=== PATIENT | female | born 1985 | race Caucasian/White ===

== ENCOUNTER 2016-08-31 18:31 | Emergency (ER) | payer OTHER ==
[~2016-08-31] VITALS: Ht 149.9 cm; Wt 78.6 kg
[~2016-08-31 18:31] MED LIST: MULT-506 PO; OMEP20CA9 PO
[2016-08-31 18:36] VITALS: TEMP 36.6; Ht 149.9 cm; Wt 78.6 kg
[2016-08-31] MEDS ORDERED: MoRPHine SULFATE 10 MG/ML CARP/VIAL IV STA (18:51)
[2016-08-31] MEDS ORDERED: SODIUM CHLORIDE 0.9% 1000ML 1,000 ML IV STA (18:51)
[2016-08-31] MEDS ORDERED: ONDANSETRON INJ 2 MG/ML 2 ML VIAL IV STA (18:51)
[2016-08-31] MEDS ORDERED: ONDA4TAB46 PO (18:54)
[2016-08-31 19:09] LABS: BASO % 0.3 %; BASO ABS # 0.02 K/uL (0-0.2); COMPLETE YES; EOS % 1.1 %; HEMATOCRIT 40.9 % (37-47); IG% 0.2 %; LYMPH % 31.1 %; LYMPH ABS # 1.95 K/uL (1.2-3.4); MEAN CELL VOLUME 84.5 fL (80-100); MEAN CORPUSCULAR HEMOGLOBIN 29.5 pg (25-34); MEAN PLATELET VOLUME 9.6 fL (7.4-10.4); MONO % 5.1 %; NEUT % 62.2 %; PLATELET COUNT 234 K/uL (130-400); RED BLOOD COUNT 4.84 M/uL (4.2-5.4); WHITE BLOOD COUNT 6.28 K/uL (4.8-10.8)
[2016-08-31 19:17] LABS: URINE APPEARANCE CLEAR (CLEAR); URINE BILIRUBIN NEG (NEG); URINE COLOR YELLOW; URINE NITRITE NEG (NEG); URINE SPECIFIC GRAVITY 1.015 (1.000-1.030); UROBILINOGEN NEG (NEG)
[2016-08-31 19:26] LABS: ALT/SGPT 28 U/L (12-78); BLOOD UREA NITROGEN 13 mg/dl (7-18); CALCIUM 9.1 mg/dl (8.5-10.1); CARBON DIOXIDE 28 mmol/L (21-32); CHLORIDE 107 mmol/L (98-107); CREATININE 0.81 mg/dl (0.60-1.20); GLUCOSE 99 mg/dl (70-99); POTASSIUM 3.9 mmol/L (3.5-5.1); SODIUM 142 mmol/L (136-145)
[2016-08-31 19:27] LABS: MANUAL MICROSCOPIC REQUIRED? NO; REVIEW REQ? NO
[2016-08-31 19:29] LABS: ALKALINE PHOSPHATASE 58 U/L (45-117); AST/SGOT 14 U/L (15-37)
[2016-08-31] MEDS ORDERED: KETOROLAC TROMETHAMINE 30 MG/ML VIAL IV STA (19:59)
--- NOTE | 2016-08-31 20:04 | DIAGNOSTIC IMAGING REPORT ---
CT SCAN OF THE ABDOMEN AND PELVIS WITHOUT CONTRAST CLINICAL HISTORY: Right flank pain COMPARISON STUDY: No previous studies for comparison. TECHNIQUE: CT scan of the abdomen and pelvis was performed from the lung bases to the proximal femurs. Images are reviewed in the axial, sagittal, and coronal planes. IV contrast was not administered for this examination. A dose lowering technique was utilized adhering to the principles of ALARA. CT DOSE: 1243.73 mGy.cm FINDINGS: Lower chest: The heart is normal in size and configuration, without pericardial effusion. The lung bases and pleural spaces are clear. Liver: The unenhanced liver is normal in size, contour, and attenuation. There is no intrahepatic biliary ductal dilatation. Gallbladder: Unremarkable. Spleen: Normal in size and attenuation. Pancreas: Unremarkable. Adrenal glands: Unremarkable. Kidneys: There is a 2 mm nonobstructing left renal calculus. There is a 3 mm nonobstructing right renal calculus. There is no hydronephrosis. No ureteral or bladder calculi are visualized. Bowel: There are no transition zones indicate bowel obstruction. There is no acute diverticulitis. The appendix is normal. Peritoneum: There is no intraperitoneal free air or abdominal ascites. Vasculature: The abdominal aorta is normal in course and caliber. Adenopathy: None. Pelvic viscera: There are bilateral ovarian follicles Skeletal structures: No destructive osseous lesions are seen. IMPRESSION: 1. Bilateral nephrolithiasis. No ureteral or bladder calculi identified 2. No evidence of bowel obstruction. No evidence of free air 3. Normal appendix 4. No acute inflammatory changes Electronically signed by: Brown Watson M.D. 08/31/2016 8:03 PM Dictated Date/Time: 08/31/2016 7:59 PM
[2016-08-31 20:40] VITALS: BP 105/68; PULSE 68; O2SAT 99
--- NOTE | 2016-09-01 00:11 | EMERGENCY ROOM VISIT NOTE ---
ED Visit Note First contact with patient: 18:41 Chief Complaint: Right flank pain. History of Present Illness: Ms. Bryan is a 31 year-old white female who ambulates into the ED complaining of right flank pain. Historically patient reports she has a history of passing large kidney stones requiring surgical removal. Patient reports acute onset of severe right flank pain that started approximately 2 hours ago. Since that time the pain has been constant but has slightly waxed and waned in intensity. She currently rates her discomfort 8/ 10. Her pain is radiating around the abdomen and into the right lower quadrant. She has not identified any aggravating or alleviating factors related to the pain. She has not had a medication for pain prior to arrival at the hospital. Associated with her pain she reports she has been nauseated and has had multiple episodes of vomiting. Patient denies fevers, chills, sweats, skin eruptions, skin color changes, upper respiratory tract symptoms, shortness of breath, chest pain, diarrhea, constipation, rectal bleeding, black/tarry stools, urinary symptoms, hematuria, vaginal bleeding, vaginal discharge. Review of Systems: As noted above in history of present illness. All body systems were reviewed and found to be negative as noted above. Past Medical History: As previously noted, bronchitis, pneumonia and GERD. Current Medications: Prilosec, Zofran. Allergies to Medications: Patient denies. Social History: Patient is currently employed; she feels safe in her home environment; she denies tobacco use. Physical Examination: Vital Signs: Date Time Temp Pulse Resp B/P (MAP) Pulse Ox O2 Delivery O2 Flow Rate FiO2 08/31/16 20:40 68 18 105/68 99 08/31/16 19:56 78 16 119/81 98 Room Air 08/31/16 19:26 81 08/31/16 18:36 36.6 92 18 120/86 98 Room Air GENERAL: 31-year-old female in moderate distress due to pain, nontoxic-appearing , afebrile and hemodynamically stable. NEUROLOGICAL: Awake, alert and oriented to person, place and time. Answering questions appropriately and following commands. Normal gait. Good hand eye coordination. SKIN: Warm, dry and pink. No soft tissue eruptions or trauma noted. HEENT: Atraumatic and normocephalic. PERRLa. Sclera white and conjunctiva pink. Oral cavity moist and pink. Pharynx is nonerythematous or edematous. Speech normal. No lymphadenopathy. Trachea midline. No jugular venous distention. BACK: No tenderness over the bony cervical, thoracic and lumbar spine. No tenderness or spasm throughout the paraspinous musculature. Mild right-sided CVA tenderness. THORAX: Lungs sounds are clear to auscultation and equal bilaterally with symmetrical chest wall. ABDOMEN: Flat and soft with mild tenderness in the right lower quadrant 2-3 cm superior to McBurney's point. Positive bowel sounds in all quadrants. No guarding, rigidity or organomegaly. EXTREMITIES: Moves all extremities well on command and with purpose. All distal neurovascular statuses are intact and equal bilaterally. ED Course: Patient is assessed as noted above. Laboratory Testing: Test 08/31/16 18:55 Range/Units White Blood Count 6.28 4.8-10.8 K/uL Red Blood Count 4.84 4.2-5.4 M/uL Hemoglobin 14.3 12.0-16.0 g/dL Hematocrit 40.9 37-47 % Mean Corpuscular Volume 84.5 80-100 fL Mean Corpuscular Hemoglobin 29.5 25-34 pg Mean Corpuscular Hemoglobin Concent 35.0 32-36 g/dl Platelet Count 234 130-400 K/uL Mean Platelet Volume 9.6 7.4-10.4 fL Neutrophils (%) (Auto) 62.2 % Lymphocytes (%) (Auto) 31.1 % Monocytes (%) (Auto) 5.1 % Eosinophils (%) (Auto) 1.1 % Basophils (%) (Auto) 0.3 % Neutrophils # (Auto) 3.91 1.4-6.5 K/uL Lymphocytes # (Auto) 1.95 1.2-3.4 K/uL Monocytes # (Auto) 0.32 0.11-0.59 K/uL Eosinophils # (Auto) 0.07 0-0.5 K/uL Basophils # (Auto) 0.02 0-0.2 K/uL RDW Standard Deviation 37.4 36.4-46.3 fL RDW Coefficient of Variation 12.2 11.5-14.5 % Immature Granulocyte % (Auto) 0.2 % Immature Granulocyte # (Auto) 0.01 0.00-0.02 K/uL Urine Color YELLOW Urine Appearance CLEAR CLEAR Urine pH 8.0 4.5-7.5 Urine Specific [place] 1.015 1.000-1.030 Urine Protein NEG NEG Urine Glucose (UA) NEG NEG Urine Ketones NEG NEG Urine Occult Blood NEG NEG Urine Nitrite NEG NEG Urine Bilirubin NEG NEG Urine Urobilinogen NEG NEG Urine Leukocyte Esterase NEG NEG Urine Test NEG NEG Sodium Level 142 136-145 mmol/L Potassium Level 3.9 3.5-5.1 mmol/L Chloride Level 107 98-107 mmol/L Carbon Dioxide Level 28 21-32 mmol/L Anion Gap 7.0 3-11 mmol/L Blood Urea Nitrogen 13 7-18 mg/dl Creatinine 0.81 0.60-1.20 mg/dl Est Creatinine Clear Calc Drug Dose 89.5 ml/min Estimated GFR () 110.6 Estimated GFR (Non- 95.4 BUN/Creatinine Ratio 16.0 10-20 Random Glucose 99 70-99 mg/dl Calcium Level 9.1 8.5-10.1 mg/dl Total Bilirubin 0.3 0.2-1 mg/dl Direct Bilirubin < 0.1 0-0.2 mg/dl Aspartate Amino Transf (AST/SGOT) 14 15-37 U/L Alanine Aminotransferase (ALT/SGPT) 28 12-78 U/L Alkaline Phosphatase 58 45-117 U/L Total Protein 7.2 6.4-8.2 gm/dl Albumin 3.6 3.4-5.0 gm/dl Lipase 315 73-393 U/L Noncontrast Abdominal/Pelvic CT: Was reviewed by myself and read by the radiologist showing bilateral nephrolithiasis with no ureter or bladder calculi identified, no evidence of bowel obstruction or free air, normal-appearing appendix and no acute inflammatory changes. Patient was hydrated with normal saline and received 3 mg of morphine IV and 30 mg of Toradol IV for pain and 4 mg of Zofran IV for nausea/vomiting. Patient was reassessed multiple times during her stay in the emergency department. After I reviewed the patient's CT results with her she did report immediately prior to going over to the radiological department for her CT she did urinate and heard a clicking sensation in the toilet; when she attempted to identify the cause of the toilet flushed itself and she was not able to identify the cause. Patient's case was reviewed with Dr. Rendon; we agreed on diagnostic approach, treatment, disposition and plan. Patient was educated about today's findings and instructed on his/her treatment plan; she verbalizes understanding and agreement with this plan. Clinical Impression: Right flank pain. Probable recently passed nephrolithiasis. Decision-Making: my differential diagnosis I considered nephrolithiasis, pyelonephritis, musculoskeletal disorder, pancreatitis, hepatitis, acute appendicitis, ectopic and other causes. Disposition: Patient discharged home in stable condition accompanied by female friends; prior to departure she was reassessed and subjectively reported she was still experiencing pain rated a 7/10. Plan: Patient was encouraged to alternate ibuprofen and acetaminophen as needed for pain. Patient was encouraged to stay well hydrated. Patient was encouraged to follow-up with her primary care provider if no better in 2-3 days. Patient was encouraged return ED for worsening pain, fevers, bloody urine, vaginal bleeding/discharge, worsening nausea/vomiting or any new/concerning symptoms.
== END 2016-08-31 20:41 | disposition home or self-care (01) ==
LOC: C.EDB 18:32 → C.EDC 20:41
DX: R10.9 Unspecified abdominal pain (principal); K21.9 Gastro-esophageal reflux disease without esophagitis

== ENCOUNTER 2017-10-06 05:14 | Emergency (ER) | payer OTHER ==
[~2017-10-06] VITALS: Ht 149.9 cm; Wt 74.8 kg
[~2017-10-06 05:14] MED LIST changes: +ONDA4TAB46 PO
[2017-10-06 05:29] VITALS: Ht 149.9 cm; Wt 74.8 kg
[2017-10-06 05:51] LABS: BASO % 0.1 %; BASO ABS # 0.01 K/uL (0-0.2); EOS % 0.6 %; EOS ABS # 0.05 K/uL (0-0.5); HEMATOCRIT 39.2 % (37-47); HEMOGLOBIN 13.6 g/dL (12.0-16.0); IG# 0.01 K/uL (0.00-0.02); LYMPH % 28.1 %; LYMPH ABS # 2.18 K/uL (1.2-3.4); MEAN CELL VOLUME 83.9 fL (80-100); MEAN CORPUSCULAR HEMOGLOBIN 29.1 pg (25-34); MEAN CORPUSCULAR HGB CONC 34.7 g/dl (32-36); MONO % 5.7 %; MONO ABS # 0.44 K/uL (0.11-0.59); NEUT % 65.4 %; NEUT ABS # 5.08 K/uL (1.4-6.5); PLATELET COUNT 229 K/uL (130-400); RED CELL DISTRIBUTION WIDTH CV 12.3 % (11.5-14.5); RED CELL DISTRIBUTION WIDTH SD 37.2 fL (36.4-46.3); WHITE BLOOD COUNT 7.77 K/uL (4.8-10.8)
[2017-10-06 06:09] LABS: ALBUMIN 3.6 gm/dl (3.4-5.0); CALCIUM 8.7 mg/dl (8.5-10.1); CREATININE 0.72 mg/dl (0.60-1.20); POTASSIUM 3.5 mmol/L (3.5-5.1); TOTAL PROTEIN 7.4 gm/dl (6.4-8.2)
--- NOTE | 2017-10-06 07:16 | DIAGNOSTIC IMAGING REPORT ---
KUB CLINICAL HISTORY: L flank pain pain COMPARISON STUDY: No previous studies for comparison. FINDINGS: The soft tissues, psoas shadows, renal outlines and intestinal gas pattern appear normal. There is no evidence for bowel obstruction. No abnormal abdominal calcifications are seen. IMPRESSION: Normal study. The above report was generated using voice recognition software. It may contain grammatical, syntax or spelling errors. Electronically signed by: Felix Felder M.D. 10/06/2017 7:14 AM Dictated Date/Time: 10/06/2017 7:14 AM
[2017-10-06] MEDS ORDERED: ONDA4TAB10 SL (07:23)
--- NOTE | 2017-10-06 07:24 | EMERGENCY ROOM VISIT NOTE ---
History First contact with patient: 05:27 Chief Complaint: KIDNEY STONE Stated Complaint: KIDNEY STONE History of Present Illness The patient is a 32 year old female who presents to the Emergency Room via private vehicle with complaints of "kidney stone". The patient states that she has a history of kidney stones. She notes that she has had about 15 in the past. She states that around 330 or 4 AM she began with left-sided flank pain that radiated from the left flank around to the left groin region. She states it was sharp in nature. She also has had fever over the past few days. She took a Zofran earlier with some relief. She never was able to pass her stones and has had to have stents in the past. Pain is a 4/10. Review of Systems A complete 10-point Review of Systems was discussed with the patient, with pertinent positives and negatives listed in the History of Present Illness. All remaining Review of Systems questions can be considered negative unless otherwise specified. Past Medical/Surgical History Medical Problems: (1) Bronchitis (2) Kidney stone (3) Pneumonia (4) Stomach problems Family History Diabetes mellitus FH: cancer FH: gallbladder disease FH: hypertension Heart disease Kidney stones Social History Smoking Status: Former Smoker Alcohol Use: occasionally Housing Status: lives with family Occupation Status: employed Current/Historical Medications Scheduled Ondasetron Odt (Zofran Odt), 4 MG SL Q6H Physical Exam Vital Signs Date Time Temp Pulse Resp B/P (MAP) Pulse Ox O2 Delivery O2 Flow Rate FiO2 10/06/17 07:13 36.6 96 16 113/87 96 Room Air 10/06/17 05:29 37.1 85 18 108/87 98 Room Air Physical Exam VITAL SIGNS - Vital signs and nursing notes were reviewed. Stable. Afebrile. GENERAL - 32-year-old female appearing her stated age who is in no acute distress. Communicates well with provider and answers questions appropriately. SKIN - Without rashes. HEAD - NC/AT. EYES - PERRL with EOMI bilaterally. Sclera anicteric. EARS - No deformities of external structures noted on gross examination bilaterally. NOSE - Midline and without cyanosis. No epistaxis or purulent drainage noted. MOUTH/OROPHARYNX - Without perioral cyanosis. . LUNGS - Chest wall symmetric without accessory muscle use, intercostals retractions, or central cyanosis. Normal vesicular breath sounds CTA B/L. No wheezes, rales, or rhonchi appreciated. CARDIAC - RRR with S1/S2. No murmur, rubs, or gallops appreciated. ABDOMEN - Abdominal contour normal without pulsations or visible masses. BS normoactive all four quadrants. No tenderness, palpable masses, hepatosplenomegaly, or ascites noted. Minimal left flank tenderness. NEUROLOGIC - Cranial nerves II through XII grossly intact. Sensory intact to light touch throughout. PSYCH - A&O, and cooperates fully with examiner. Pt is very pleasant and interacts well with examiner. Medical Decision & Procedures ER Provider Diagnostic Interpretation: KUB CLINICAL HISTORY: L flank pain pain COMPARISON STUDY: No previous studies for comparison. FINDINGS: The soft tissues, psoas shadows, renal outlines and intestinal gas pattern appear normal. There is no evidence for bowel obstruction. No abnormal abdominal calcifications are seen. IMPRESSION: Normal study. The above report was generated using voice recognition software. It may contain grammatical, syntax or spelling errors. Electronically signed by: Felix Felder M.D. 10/06/2017 7:14 AM Dictated Date/Time: 10/06/2017 7:14 AM RENAL ULTRASOUND HISTORY: L flank pain COMPARISON: None. FINDINGS: Right kidney: 9.8 cm. No hydronephrosis. Normal corticomedullary differentiation and cortical thickness. Left kidney: 9.9 cm. Mild fullness within the left renal collecting system without britney hydronephrosis. Normal corticomedullary differentiation and cortical thickness. Bladder: No bladder wall thickening. The bilateral ureteral jets were identified. IMPRESSION: 1. Mild fullness within the left renal collecting system without britney hydronephrosis. 2. Normal right kidney. Electronically signed by: Joshua Trimble M.D. 10/06/2017 7:26 AM Dictated Date/Time: 10/06/2017 7:24 AM Laboratory Results 10/06/17 05:40 Red Blood Count 4.67, Mean Corpuscular Volume 83.9, Mean Corpuscular Hemoglobin 29.1, Mean Corpuscular Hemoglobin Concent 34.7, Mean Platelet Volume 10.0, Neutrophils (%) (Auto) 65.4, Lymphocytes (%) (Auto) 28.1, Monocytes (%) (Auto) 5.7, Eosinophils (%) (Auto) 0.6, Basophils (%) (Auto) 0.1, Neutrophils # (Auto) 5.08, Lymphocytes # (Auto) 2.18, Monocytes # (Auto) 0.44, Eosinophils # (Auto) 0.05, Basophils # (Auto) 0.01 10/06/17 05:40 Test 10/06/17 05:40 White Blood Count 7.77 K/uL (4.8-10.8) Red Blood Count 4.67 M/uL (4.2-5.4) Hemoglobin 13.6 g/dL (12.0-16.0) Hematocrit 39.2 % (37-47) Mean Corpuscular Volume 83.9 fL (80-100) Mean Corpuscular Hemoglobin 29.1 pg (25-34) Mean Corpuscular Hemoglobin Concent 34.7 g/dl (32-36) Platelet Count 229 K/uL (130-400) Mean Platelet Volume 10.0 fL (7.4-10.4) Neutrophils (%) (Auto) 65.4 % Lymphocytes (%) (Auto) 28.1 % Monocytes (%) (Auto) 5.7 % Eosinophils (%) (Auto) 0.6 % Basophils (%) (Auto) 0.1 % Neutrophils # (Auto) 5.08 K/uL (1.4-6.5) Lymphocytes # (Auto) 2.18 K/uL (1.2-3.4) Monocytes # (Auto) 0.44 K/uL (0.11-0.59) Eosinophils # (Auto) 0.05 K/uL (0-0.5) Basophils # (Auto) 0.01 K/uL (0-0.2) RDW Standard Deviation 37.2 fL (36.4-46.3) RDW Coefficient of Variation 12.3 % (11.5-14.5) Immature Granulocyte % (Auto) 0.1 % Immature Granulocyte # (Auto) 0.01 K/uL (0.00-0.02) Urine Color YELLOW Urine Appearance CLEAR (CLEAR) Urine pH 7.0 (4.5-7.5) Urine Specific [place] 1.008 (1.000-1.030) Urine Protein NEG (NEG) Urine Glucose (UA) NEG (NEG) Urine Ketones NEG (NEG) Urine Occult Blood 2+ (NEG) Urine Nitrite NEG (NEG) Urine Bilirubin NEG (NEG) Urine Urobilinogen NEG (NEG) Urine Leukocyte Esterase NEG (NEG) Urine WBC (Auto) 1-5 /hpf (0-5) Urine RBC (Auto) >30 /hpf (0-4) Urine Hyaline Casts (Auto) 1-5 /lpf (0-5) Urine Epithelial Cells (Auto) >30 /lpf (0-5) Urine Bacteria (Auto) NEG (NEG) Anion Gap 9.0 mmol/L (3-11) Est Creatinine Clear Calc Drug Dose 97.1 ml/min Estimated GFR () 126.6 Estimated GFR (Non- 109.3 BUN/Creatinine Ratio 15.2 (10-20) Calcium Level 8.7 mg/dl (8.5-10.1) Total Bilirubin 0.4 mg/dl (0.2-1) Aspartate Amino Transf (AST/SGOT) 16 U/L (15-37) Alanine Aminotransferase (ALT/SGPT) 27 U/L (12-78) Alkaline Phosphatase 64 U/L (45-117) Total Protein 7.4 gm/dl (6.4-8.2) Albumin 3.6 gm/dl (3.4-5.0) Globulin 3.8 gm/dl (2.5-4.0) Albumin/Globulin Ratio 1.0 (0.9-2) Medical Decision Patient was seen and evaluated as above in room B6. Review was performed of nursing notes and vital signs. After obtaining a thorough history and physical examination the above work up was performed. She presents to us today with left -sided flank pain. Positive CVA tenderness on the left. CBC and metabolic panel revealed no leukocytosis, anemia or kidney failure. Urine reveals blood. I suspect she could have either passed a stone or has a small stone that she is passing. She declined pain medication. She will be given Zofran for nausea. She is to follow with a family doctor or return with worsening. KUB within normal limits. Ultrasound reveals mild fullness. I discussed with her different differentials for pain in that region and at this time believe that refraining from a CT scan is warranted given the amount of radiation with risk felt to outweigh benefit. She is to return with worsening. The patient was educated upon management, educated upon todays findings/results, educated upon symptoms in which to return, had questions answered prior to discharge, and was discharged home in good condition. Her examination is not consistent with ovarian torsion. Case was discussed with the attending physician. In the evaluation and treatment of this patient the following differential diagnoses were entertained: Renal calculi, pyelonephritis, diverticulitis, ovarian cyst, appendicitis, among others. Impression Primary Impression: Left flank pain Departure Information Dispostion Home / Self-Care Condition GOOD Prescriptions Ondasetron Odt (ZOFRAN ODT) 4 Mg Tab 4 MG SL Q6H for Nausea, #12 TAB Prov: Zackary Reeves PA-C 10/06/17 Referrals Nori Lowe MD (PCP) Patient Instructions [facility] Additional Instructions You have been treated in the Emergency Department today for left-sided flank pain which I suspect is likely from a kidney stone he may have passed. You have been prescribed Zofran to be used for any nausea or vomiting. Take as prescribed. For pain control, you can use the following [id number] medicines (if >12 yo): - Regular strength (325mg/tab) Tylenol (acetaminophen) 2 tabs every 4-6 hours as needed. Do not exceed 12 tablets in a 24 hour period. Avoid taking more than 3 grams (3000 mg) of Tylenol per day. This includes any other sources of acetaminophen you may take on a regular basis. - Regular strength (200 mg/tab) Advil (ibuprofen) 1-2 tabs every 4-6 hours as needed. Do not exceed a dose of 3200 mg per day. You have been provided a strainer and specimen collection cup. You should strain your urine to collect any passed stones. Your stones can be placed into the specimen cup and taken to your Urologist for further evaluation. Please follow-up with your family doctor. Return to the Emergency Department if your symptoms persist despite the treatment plan outlined above or if you develop the following symptoms: intractable pain, fever, chills, or large amounts of blood in your urine.
--- NOTE | 2017-10-06 07:27 | DIAGNOSTIC IMAGING REPORT ---
RENAL ULTRASOUND HISTORY: L flank pain COMPARISON: None. FINDINGS: Right kidney: 9.8 cm. No hydronephrosis. Normal corticomedullary differentiation and cortical thickness. Left kidney: 9.9 cm. Mild fullness within the left renal collecting system without britney hydronephrosis. Normal corticomedullary differentiation and cortical thickness. Bladder: No bladder wall thickening. The bilateral ureteral jets were identified. IMPRESSION: 1. Mild fullness within the left renal collecting system without britney hydronephrosis. 2. Normal right kidney. Electronically signed by: Joshua Trimble M.D. 10/06/2017 7:26 AM Dictated Date/Time: 10/06/2017 7:24 AM
[2017-10-06 07:33] VITALS: BP 113/87; PULSE 96; TEMP 36.6; O2SAT 96
== END 2017-10-06 07:38 | disposition home or self-care (01) ==
LOC: C.EDB 05:15
DX: R10.84 Generalized abdominal pain (principal); Z87.891 Personal history of nicotine dependence

== ENCOUNTER 2018-05-10 07:20 | Observation (INO) ==
--- NOTE | 2018-04-20 10:42 | Anesthesiology Consultation ---
Date of Service April 20, 2018 Assessment & Plan (1) Encounter for pre-operative examination: - Hx possible pseudotumor cerebri following with neuro; neuro note= 04/23/18= "chart reviewed. no clear evidence for pseudotumor cerebri has been documented... see no contraindication to surgery." - Check test AM DOS Chart Review Chart Review: Acceptable Risk for Surgery and Patient NOT seen in Pre Admission Testing History Surgery Operation Date: 05/10/18 09:00 Proposed Procedures p Laparoscopic Cholecystectomy - Mikhail Pond MD, FACS Height/Weight Height: 4 ft 11 in Weight: 74.389 kg Allergies Allergy/AdvReac Type Severity Reaction Status Date / Time house dust Allergy Intermediate CONGESTION, Verified 04/16/18 14:45 SNEEZING, RUNNY NOSE house dust mite Allergy Intermediate CONGESTION, Verified 04/16/18 14:45 SNEEZING, RUNNY NOSE mold Allergy Intermediate CONGESTION, Verified 04/16/18 14:45 SNEEZING, RUNNY NOSE Medications Home Medications Medication Instructions Recorded Confirmed Last Taken multivitamin 1 tab PO QPM 03/17/18 04/16/18 Unknown omeprazole 20 mg PO DAILY PRN 03/17/18 04/16/18 Unknown Cortisop 2 tab PO QPM 04/16/18 04/16/18 Unknown ibuprofen [Advil] 600 mg PO QID PRN 04/16/18 04/16/18 Unknown loratadine [Claritin] 10 mg PO DAILY PRN 04/16/18 04/16/18 Unknown naproxen sodium [Aleve] 220 mg PO BID PRN 04/16/18 04/16/18 Unknown Past Medical History Medical History Anemia HX GERD (gastroesophageal reflux disease) Headache Hiatal hernia SMALL Kidney stones Obesity Pseudotumor cerebri POSSIBLE; "NO CLEAR EVIDENCE" PER NEUROLOGY Past Surgical History Surgical History History of anesthesia reaction ? POST-OP RESPIRATORY DISTRESS S/P TONSILLECTOMY AT AGE 3; NO ISSUES WITH SUBSEQUENT SURGERIES History of cystoscopy WITH STENT History of tonsillectomy History of tooth extraction WISDOM TEETH Nausea and vomiting after administration of anesthetic agent Social History Smoking Status: Former smoker Do You Dip or Chew Tobacco: No Smoking End Date: QUIT 5-6 YRS AGO Hx Alcohol Use: Yes Alcohol type: wine alcohol intake frequency: other Hx Substance Use: No substance use type: does not use Physical Exam *Per nurse phone interview; patient has 2 bonded upper front teeth that are "delicate" Testing Electrocardiogram Date: 03/17/18 NSR at 93bpm. Low voltage QRS. No significant change compared to 04/26/11 EKG per cardio. Chest X-Ray Date: 03/17/18 Findings: + NAD Laboratory Results 03/17/18 WBC 7.60 H/H 14.4/41.5 PLATELETS 314 SODIUM 139 POTASSIUM 3.4 CHLORIDE 105 CO2 28 BUN 12 CREATININE 0.82 GLUCOSE 94 UA negative
[~2018-05-10 07:20] MED LIST changes: +LR 15ML/HR IV SCH; -MULT-506 PO; -OMEP20CA9 PO; -ONDA4TAB46 PO; +cefUROXime 1,500 MG in DEXTROSE 5% 100 ML IV SCH
[2018-05-10] MEDS ORDERED: PROMETHAZINE HCL 12.5 MG in SODIUM CHLORIDE 0.9% 50 ML IV PRN ×2 (07:25→11:37)
[2018-05-10] MEDS ORDERED: ATROPINE SULFATE 0.1 MG/ML 10ML SYR IV PRN (07:25)
[2018-05-10] MEDS ORDERED: fentaNYL citrate 100 MCG/2 ML VIAL IV PRN (07:25)
[2018-05-10] MEDS ORDERED: ONDANSETRON INJ 2 MG/ML 2 ML VIAL IV PRN ×2 (07:25→11:37)
[2018-05-10] MEDS ORDERED: PHENYLEPHRINE 100MCG/ML 5ML SYR IV PRN (07:25)
[2018-05-10] MEDS ORDERED: HYDROmorphone INJ 1 MG/ML SYRINGE IV PRN (07:25)
[2018-05-10] MEDS ORDERED: ePHEDrine sulfate 50 MG/ML AMP IV PRN (07:25)
[2018-05-10] MEDS ORDERED: ONDANSETRON INJ 2 MG/ML 2 ML VIAL ONE ×2 (07:44→09:32)
[2018-05-10] MEDS ORDERED: LIDOCAINE HCL 2% 2 ML VIAL/AMP(20MG/ML) INFIL ONE (07:44)
[2018-05-10] MEDS ORDERED: PROPOFOL IV EMULSION 10 MG/ML 20 ML VIAL IV ONE (07:44)
[2018-05-10] MEDS ORDERED: GLYCOPYRROLATE 0.2 MG/ML VIAL ONE (07:44)
[2018-05-10] MEDS ORDERED: NEOSTIGMINE METHYLSULFATE 5 MG/5 ML SYR ONE (07:44)
[2018-05-10] MEDS ORDERED: ROCURONIUM BROMIDE 10 MG/ML 5 ML VIAL ONE (07:44)
[2018-05-10] MEDS ORDERED: fentaNYL citrate 100 MCG/2 ML VIAL ONE ×2 (08:04→09:24)
[2018-05-10] MEDS ORDERED: MIDAZOLAM HCL 1 MG/ML 2ML VIAL ONE (08:04)
--- NOTE | 2018-05-10 08:26 | History & Physical Bridge Note ---
Date of Service May 10, 2018 History & Physical Bridge Note I have examined the patient, reviewed the History & Physical and in the interval since the performance of the History & Physical I have noted the following changes of clinical significance: no changes noted
[2018-05-10] MEDS ORDERED: BUPIVACAINE 0.5 % 5 MG/1 ML MPF 30ML VIAL ONE (08:47)
[2018-05-10] MEDS ORDERED: DEXAMETHASONE SOD INJ 4 MG/ML VIAL ONE (09:17)
[2018-05-10] MEDS ORDERED: ACETAMINOPHEN 1,000 MG/100 ML VIAL IV ONE (09:44)
--- NOTE | 2018-05-10 09:44 | Operative Report ---
Post Operative Report Pre & Post Diagnosis Operation Date: 05/10/18 08:50 Pre-Op Diagnosis: Biliary Colic Post-Op Diagnosis: Biliary Colic adhesions, chronic cholecystitis Procedure Operation Date: 05/10/18 08:50 Actual Procedures p Laparoscopic Cholecystectomy - Mikhail Pond MD, FACS lysis of adhesions Surgeon Mikhail Pond MD, FACS Loom Changeover Operator Susana Mcdonald Estimated Blood Loss 10 Findings Consistent with Post-Op Diagnosis Specimens gallbladder Description of Procedure see dictated note I attest to the content of the Intraoperative Record and any orders documented therein. Any exceptions are noted below.
[2018-05-10] MEDS ORDERED: ACETAMINOPHEN 1000 MG/100 ML IV IV ONE (10:41)
--- NOTE | 2018-05-10 10:47 | Operative Report ---
DATE OF OPERATION: 05/10/2018 NAME OF OPERATION: Laparoscopic cholecystectomy with lysis of adhesions. PREOPERATIVE DIAGNOSIS: Biliary colic. POSTOPERATIVE DIAGNOSIS: Biliary colic with chronic cholecystitis and adhesions. STAFF SURGEON: Mikhail Pond PA-C. DUPLICATING MACHINE OPERATOR: Robin Mcdonald PA-C ANESTHESIA: General. DESCRIPTION OF PROCEDURE: The patient was brought in the operating room and placed on the operating table in supine position. Her abdomen was prepped and draped in usual fashion. Pneumatic stockings and orogastric tube were placed. My medical assistant during the operation helped with prepping, draping, removal of the gallbladder and closure of the wounds. 0.5% plain Marcaine was used to anesthetize all incisions. Incision was made just above the umbilicus, carrying dissection down identifying the fascia, placing a Veress needle producing pneumoperitoneum, placing an 11 mm port at this level and then under visualization, three 5 mm ports were placed, 1 cephalad and 2 laterally. Gallbladder was grasped and retracted. There were adhesions to the gallbladder. These were taken down bluntly and sharply and then the gallbladder was aspirated of bile which was somewhat thick. The dissection was carried out at the jose hepatis, identifying the cystic duct and cystic artery. These were clipped and transected and the gallbladder was dissected away from the liver bed. There was a mild scar tissue consistent with chronic cholecystitis. The gallbladder was removed from the liver and then placed in an Endobag. After appropriate irrigation and hemostasis, the Endobag was removed through the umbilical site. All ports were then removed. The umbilical fascia closed using interrupted 0 Vicryl suture. Subcutaneous tissue reapproximated using 2-0 plain suture and then the skin at the umbilicus closed using 5-0 Prolene suture. The patient did have some oozing from the subcutaneous space which was stopped using the sutures. The other sites closed using subcuticular 4-0 Monocryl with Dermabond. The patient was transferred to the recovery room in stable condition. I attest to the content of the Intraoperative Record and any orders documented therein. Any exception s are noted below.
--- NOTE | 2018-05-10 11:21 | Anesthesiology Progress Note ---
Date of Service May 10, 2018 Anesthesia Post Procedure Vital Signs Vital Signs: Temp Pulse Pulse Resp BP BP Pulse Ox 05/10/18 11:16 36.6 C 81 16 102/67 97 05/10/18 10:51 81 16 102/67 97 05/10/18 10:50 68 15 97 05/10/18 10:46 94 H 18 98/57 L 98 05/10/18 10:41 78 18 96/72 L 97 05/10/18 10:40 71 20 97 05/10/18 10:36 76 24 105/70 97 05/10/18 10:31 81 15 95/65 L 97 05/10/18 10:30 81 21 97 05/10/18 10:26 88 20 100/65 97 05/10/18 10:21 75 14 101/70 98 05/10/18 10:20 80 21 98 05/10/18 10:18 36.6 C 83 20 107/67 98 05/10/18 10:16 70 14 107/67 98 05/10/18 10:15 68 16 98 05/10/18 10:12 75 15 97 05/10/18 10:11 75 12 109/71 96 05/10/18 10:10 71 14 97 05/10/18 10:06 78 14 117/75 98 05/10/18 10:05 86 15 100 05/10/18 10:01 72 19 102/67 99 05/10/18 10:00 17 100 05/10/18 09:56 84 27 H 105/80 100 05/10/18 09:55 36.1 C L 99 H 19 105/90 100 05/10/18 07:54 36.6 C 86 18 126/80 97 Notes Mental Status: alert / awake / arousable Patient Amnestic to Procedure: Yes Nausea / Vomiting: adequately controlled Pain: adequately controlled Airway Patency, RR, SpO2: stable & adequate BP & HR: stable & adequate Hydration State: stable & adequate Anesthetic Complications: no major complications apparent
[2018-05-10] MEDS ORDERED: PROMETHAZINE HCL 25 MG in SODIUM CHLORIDE 0.9% 50 ML IV PRN (11:37)
[2018-05-10] MEDS ORDERED: MoRPHine SULFATE 4 MG/ML 1 ML CARP\\VIAL IV PRN (11:37)
[2018-05-10] MEDS ORDERED: HYDROCODONE/ACETAMOPHEN 5/325MG TAB PO PRN (11:37)
[2018-05-10] MEDS ORDERED: MoRPHine SULFATE 2 MG/ML CARP IV PRN (11:37)
[2018-05-10] MEDS: LACTATED RINGER'S 1,000 ML IV SCH (12:42)
[2018-05-10] MEDS: IBUPROFEN 600 MG TAB PO PRN ×2 (12:47→20:56)
[2018-05-11] MEDS ORDERED: HYDROCODONE/ACETAMOPHEN 5/325MG TAB PO PRN (05:48)
[2018-05-11] MEDS: IBUPROFEN 600 MG TAB PO PRN (06:06)
[2018-05-11] MEDS: LACTATED RINGER'S 1,000 ML IV SCH (06:07)
[2018-05-11 06:09] LABS: Hematocrit (blood only) 33.5 % (37-47); Hemoglobin 11.5 g/dL (12.0-16.0); Immature Granulocytes # (auto) 0.03 K/uL (0.00-0.02); Immature Granulocytes % (auto) 0.2 %; Lymphocytes # (auto) 1.37 K/uL (1.2-3.4); Lymphocytes % (auto) 9.6 %; Mean Corpuscular Hgb Conc 34.3 g/dL (32-36); Mean Corpuscular Volume 84.2 fL (80-100); Mean Platelet Volume 9.5 fL (7.4-10.4); Monocytes # (auto) 0.62 K/uL (0.11-0.59); Monocytes % (auto) 4.3 %; Neutrophils # (auto) 12.24 K/uL (1.4-6.5); Neutrophils % (auto) 85.9 %; Platelet Count 218 K/uL (130-400); RDW Coefficient of Variation 12.8 % (11.5-14.5); RDW Standard Deviation 39.2 fL (36.4-46.3); Red Blood Count 3.98 M/uL (4.2-5.4); White Blood Count 14.26 K/uL (4.8-10.8)
[2018-05-11 06:38] LABS: Albumin Level 2.8 gm/dl (3.4-5.0); BUN Creatinine Ratio 14.1 (10-20); Bilirubin Direct < 0.1 mg/dl (0-0.2); Blood Urea Nitrogen 11 mg/dl (7-18); Calcium 8.4 mg/dl (8.5-10.1); Carbon Dioxide 24 mmol/L (21-32); Chloride 114 mmol/L (98-107); Est GFR (African American) 119.7; Est GFR (Non-African American) 103.3; Glucose 112 mg/dl (70-99); Sodium 143 mmol/L (136-145)
[2018-05-11 06:41] LABS: Alanine Aminotransferase 36 U/L (12-78); Albumin Globulin Ratio 0.9 (0.9-2); Alkaline Phosphatase 51 U/L (45-117); Aspartate Aminotransferase 27 U/L (15-37); Bilirubin,Total 0.2 mg/dl (0.2-1); Globulin 3.3 gm/dl (2.5-4.0); Total Protein 6.1 gm/dl (6.4-8.2)
--- NOTE | 2018-05-11 08:03 | Anesthesiology Progress Note ---
Date of Service May 11, 2018 Anesthesia Post Procedure Vital Signs Vital Signs: Temp Pulse Pulse Resp BP BP BP 05/11/18 07:57 37.0 C 81 18 114/69 104/68 05/11/18 06:57 37.0 C 81 18 104/68 05/11/18 02:49 36.9 C 104 H 18 101/64 05/10/18 22:54 36.9 C 92 H 16 110/69 05/10/18 19:14 36.8 C 100 H 20 114/69 05/10/18 17:00 37.0 C 106 H 18 100/63 05/10/18 13:27 36.3 C L 92 H 18 112/66 05/10/18 12:23 36.9 C 85 15 88/57 L 05/10/18 11:57 89 18 90/61 L 05/10/18 11:25 36.9 C 80 18 101/69 05/10/18 11:16 36.6 C 81 16 102/67 05/10/18 10:51 81 16 102/67 05/10/18 10:50 68 15 05/10/18 10:46 94 H 18 98/57 L 05/10/18 10:41 78 18 96/72 L 05/10/18 10:40 71 20 05/10/18 10:36 76 24 105/70 05/10/18 10:31 81 15 95/65 L 05/10/18 10:30 81 21 05/10/18 10:26 88 20 100/65 05/10/18 10:21 75 14 101/70 05/10/18 10:20 80 21 05/10/18 10:18 36.6 C 83 20 107/67 05/10/18 10:16 70 14 107/67 05/10/18 10:15 68 16 05/10/18 10:12 75 15 05/10/18 10:11 75 12 109/71 05/10/18 10:10 71 14 05/10/18 10:06 78 14 117/75 05/10/18 10:05 86 15 05/10/18 10:01 72 19 102/67 05/10/18 10:00 17 05/10/18 09:56 84 27 H 105/80 05/10/18 09:55 36.1 C L 99 H 19 105/90 Pulse Ox 05/11/18 07:57 96 05/11/18 06:57 96 05/11/18 02:49 95 05/10/18 22:54 95 05/10/18 19:14 93 05/10/18 17:00 94 05/10/18 13:27 98 05/10/18 12:23 97 05/10/18 11:57 100 05/10/18 11:25 100 05/10/18 11:16 97 05/10/18 10:51 97 05/10/18 10:50 97 05/10/18 10:46 98 05/10/18 10:41 97 05/10/18 10:40 97 05/10/18 10:36 97 05/10/18 10:31 97 05/10/18 10:30 97 05/10/18 10:26 97 05/10/18 10:21 98 05/10/18 10:20 98 05/10/18 10:18 98 05/10/18 10:16 98 05/10/18 10:15 98 05/10/18 10:12 97 05/10/18 10:11 96 05/10/18 10:10 97 05/10/18 10:06 98 05/10/18 10:05 100 05/10/18 10:01 99 05/10/18 10:00 100 05/10/18 09:56 100 05/10/18 09:55 100 Pain Intensity Abdomen: Pain Intensity: 3 Notes Mental Status: alert / awake / arousable and participated in evaluation Patient Amnestic to Procedure: Yes Nausea / Vomiting: adequately controlled Pain: adequately controlled Airway Patency, RR, SpO2: stable & adequate BP & HR: stable & adequate Hydration State: stable & adequate Anesthetic Complications: no major complications apparent and Pt Satisfied with anesthetic care
--- NOTE | 2018-05-11 09:23 | Discharge Summary ---
PRINCIPAL DIAGNOSIS: Chronic cholecystitis. HISTORY OF PRESENT ILLNESS: The patient is a 33-year-old female with recurrent abdominal pain, felt to be from the gallbladder. HOSPITAL COURSE: The patient was brought into the hospital on 05/10/2018 where she underwent laparoscopic cholecystectomy. She does have a history of severe nausea postoperatively and was kept overnight and has done well, was felt stable for discharge home today. She will be followed in the surgical clinic within 1 week.
== END 2018-05-11 09:42 | disposition home or self-care (01) ==
LOC: ASU 07:20 → 3N 07:20